=== PATIENT | male | born 1945 | race Caucasian/White ===

== ENCOUNTER → 2016-09-22 | Outpatient (CLI) | payer MEDICARE, BC ==
[~2016-09-22] MED LIST: ASPIRIN E.C. 8181 MG PO; BENICAR20 MG PO; CITRACEL PO; COLACE 100100 MG/CAP PO; EPA/GLA1 SGL PO; FLOMAX0.4 MG PO; GLUCOSAMINE & C1 CA1 PO; GLUCOSAMINE PO; HYZAAR 25 MG-101 TAB PO; LIPITOR20 MG PO; LOPRESSOR 225 MG/TAB PO; LUTEIN20 M1 PO; MULTIPLE VITAMI1 CAP PO; MULTIVITAMIN1 CTB PO; NITROSTAT0.4 MG/TAB SL; OCUVITE1 TA1 PO; PERCOCET 325 MG1 TA2 PO; PHENERGAN 25 TA25 MG PO; PHENERGAN25 MG RC; PLAVIX 75MG TAB75 MG PO; PYRIDIUM200 M1; TYLENOL 325MG325 MG PO; VICODIN 5/5001 UDTAB PO; VYTORIN 10 MG-41 TAB PO
== END ==
LOC: MHCPAIN 11:21
DX: G89.29 Other chronic pain (principal); M47.817 Spondylosis without myelopathy or radiculopathy, lumbosacral region; M54.16 Radiculopathy, lumbar region; M53.3 Sacrococcygeal disorders, not elsewhere classified; M41.9 Scoliosis, unspecified
CPT/HCPCS: G0463

== ENCOUNTER → 2016-09-25 | Outpatient (CLI) | payer MEDICARE, BC | LOC: MHCPAIN 10:13 | DX: M47.817 Spondylosis without myelopathy or radiculopathy, lumbosacral region (principal) | CPT/HCPCS: J1100; J2250; J3010; Q9967 ==

== ENCOUNTER → 2016-11-03 | Outpatient (CLI) | payer MEDICARE, BC | LOC: MHCPAIN 11:03 | DX: G89.29 Other chronic pain (principal); M47.817 Spondylosis without myelopathy or radiculopathy, lumbosacral region; M54.16 Radiculopathy, lumbar region; M53.3 Sacrococcygeal disorders, not elsewhere classified | CPT/HCPCS: G0463 ==

== ENCOUNTER → 2016-11-13 | Outpatient (CLI) | payer MEDICARE, BC | LOC: MHCPAIN 08:42 | DX: M47.817 Spondylosis without myelopathy or radiculopathy, lumbosacral region (principal) | CPT/HCPCS: J1100; Q9967 ==

== ENCOUNTER → 2017-01-12 | Outpatient (CLI) | payer MEDICARE, BC | LOC: MHCPAIN 10:58 | DX: G89.29 Other chronic pain (principal); M47.27 Other spondylosis with radiculopathy, lumbosacral region; M53.3 Sacrococcygeal disorders, not elsewhere classified; Z87.891 Personal history of nicotine dependence; Z79.82 Long term (current) use of aspirin | CPT/HCPCS: G0463 ==

== ENCOUNTER → 2017-07-07 | Outpatient (CLI) | payer MEDICARE, BC | LOC: MHCPAIN 10:58 | DX: G89.29 Other chronic pain (principal); M47.817 Spondylosis without myelopathy or radiculopathy, lumbosacral region; M54.16 Radiculopathy, lumbar region; M53.3 Sacrococcygeal disorders, not elsewhere classified; M48.061 Spinal stenosis, lumbar region without neurogenic claudication | CPT/HCPCS: G0463 ==

== ENCOUNTER → 2017-09-22 | Outpatient (CLI) | payer MEDICARE, BC ==
[~2017-09-22] MED LIST changes: +NEURONTIN300 MG/CAP PO; +PREDNISONE20 MG PO; +PRESERVISION1 SGL PO
== END ==
LOC: MHCPAIN 09:29
DX: G89.29 Other chronic pain (principal); M47.817 Spondylosis without myelopathy or radiculopathy, lumbosacral region; M54.16 Radiculopathy, lumbar region; M53.3 Sacrococcygeal disorders, not elsewhere classified; M48.061 Spinal stenosis, lumbar region without neurogenic claudication; M41.9 Scoliosis, unspecified
CPT/HCPCS: G0463

== ENCOUNTER → 2017-10-07 | Outpatient (CLI) | payer MEDICARE, BC | LOC: MHCPAIN 08:41 | DX: M47.817 Spondylosis without myelopathy or radiculopathy, lumbosacral region (principal); M48.061 Spinal stenosis, lumbar region without neurogenic claudication | CPT/HCPCS: J1040; Q9967 ==

== ENCOUNTER → 2017-10-27 | Outpatient (CLI) | payer MEDICARE, BC | LOC: MHCPAIN 15:12 | DX: G89.29 Other chronic pain (principal); M47.817 Spondylosis without myelopathy or radiculopathy, lumbosacral region; M54.16 Radiculopathy, lumbar region; M53.3 Sacrococcygeal disorders, not elsewhere classified; M41.9 Scoliosis, unspecified; M48.061 Spinal stenosis, lumbar region without neurogenic claudication | CPT/HCPCS: G0463 ==

== ENCOUNTER → 2017-11-12 | Outpatient (CLI) | payer MEDICARE, BC | LOC: MHCPAIN 08:45 | DX: M54.16 Radiculopathy, lumbar region (principal) | CPT/HCPCS: J1040; J2250; J3010; Q9967 ==

== ENCOUNTER → 2018-01-11 | Outpatient (CLI) | payer MEDICARE, BC | LOC: MHCPAIN 10:03 | DX: G89.29 Other chronic pain (principal); M47.817 Spondylosis without myelopathy or radiculopathy, lumbosacral region; M54.16 Radiculopathy, lumbar region; M53.3 Sacrococcygeal disorders, not elsewhere classified; M48.061 Spinal stenosis, lumbar region without neurogenic claudication | CPT/HCPCS: G0463 ==

== ENCOUNTER → 2018-01-14 | Outpatient (CLI) | payer MEDICARE, BC | LOC: MHCPAIN 12:54 | DX: M47.817 Spondylosis without myelopathy or radiculopathy, lumbosacral region (principal); M54.16 Radiculopathy, lumbar region | CPT/HCPCS: J1040; J2250; J3010; Q9967 ==

== ENCOUNTER → 2018-04-05 | Outpatient (CLI) | payer MEDICARE, BC | LOC: MHCPAIN 09:33 | DX: G89.29 Other chronic pain (principal); M47.817 Spondylosis without myelopathy or radiculopathy, lumbosacral region; M54.16 Radiculopathy, lumbar region; M53.3 Sacrococcygeal disorders, not elsewhere classified | CPT/HCPCS: G0463 ==

== ENCOUNTER → 2018-04-26 | Outpatient (CLI) | payer MEDICARE, BC | LOC: MHCPAIN 11:50 | DX: M47.817 Spondylosis without myelopathy or radiculopathy, lumbosacral region (principal); M54.16 Radiculopathy, lumbar region | CPT/HCPCS: J1100; J2250; J3010; Q9967 ==

== ENCOUNTER → 2018-06-15 | Outpatient (CLI) | payer MEDICARE, BC | LOC: MHCPAIN 11:14 | DX: G89.29 Other chronic pain (principal); M47.817 Spondylosis without myelopathy or radiculopathy, lumbosacral region; M54.16 Radiculopathy, lumbar region; M53.3 Sacrococcygeal disorders, not elsewhere classified | CPT/HCPCS: G0463 ==

== ENCOUNTER → 2018-06-28 | Outpatient (CLI) | payer MEDICARE, BC | LOC: MHCPAIN 14:47 | DX: M47.817 Spondylosis without myelopathy or radiculopathy, lumbosacral region (principal); M54.16 Radiculopathy, lumbar region | CPT/HCPCS: J1100; J2250; J3010; Q9967 ==

== ENCOUNTER → 2018-08-30 | Outpatient (CLI) | payer MEDICARE, BC | LOC: MHCPAIN 11:10 | DX: G89.29 Other chronic pain (principal); M47.817 Spondylosis without myelopathy or radiculopathy, lumbosacral region; M54.16 Radiculopathy, lumbar region; M53.3 Sacrococcygeal disorders, not elsewhere classified | CPT/HCPCS: G0463 ==

== ENCOUNTER → 2018-09-21 | Outpatient (RCR) | payer MEDICARE, BC | END | disposition home or self-care (01) | LOC: WSPT → WSC 06-23 14:30 → WSPT 06-29 15:00 → WSC 07-06 08:30 → WSPT 07-13 14:15 → WSC 07-15 13:00 → WSPT 07-20 13:00 → WSC 07-27 15:30 → WSPT 07-30 13:45 | DX: M47.817 Spondylosis without myelopathy or radiculopathy, lumbosacral region (principal); G89.29 Other chronic pain ==

== ENCOUNTER 2018-10-07 14:15 | Outpatient (RCR) | payer MEDICARE, BC | END 2018-12-23 | LOC: WSPT | DX: M47.817 Spondylosis without myelopathy or radiculopathy, lumbosacral region (principal); G89.29 Other chronic pain ==

== ENCOUNTER → 2018-12-28 | Outpatient (CLI) | payer MEDICARE, BC | LOC: MHCPAIN 08:18 | DX: G89.29 Other chronic pain (principal); M47.817 Spondylosis without myelopathy or radiculopathy, lumbosacral region; M54.16 Radiculopathy, lumbar region; M53.3 Sacrococcygeal disorders, not elsewhere classified | CPT/HCPCS: G0463 ==

== ENCOUNTER → 2019-01-04 | Outpatient (CLI) | payer MEDICARE, BC | LOC: COL.RAD 11:55 | DX: M47.27 Other spondylosis with radiculopathy, lumbosacral region (principal) ==

== ENCOUNTER → 2019-01-13 | Outpatient (CLI) | payer MEDICARE, BC | LOC: MHCPAIN 09:58 | DX: M47.817 Spondylosis without myelopathy or radiculopathy, lumbosacral region (principal); M54.16 Radiculopathy, lumbar region | CPT/HCPCS: J1100; Q9967 ==

== ENCOUNTER → 2019-04-25 | Outpatient (CLI) | payer MEDICARE, BC | LOC: MHCPAIN 09:13 | DX: M47.817 Spondylosis without myelopathy or radiculopathy, lumbosacral region (principal); M54.16 Radiculopathy, lumbar region | CPT/HCPCS: G0463 ==

== ENCOUNTER → 2019-10-25 | Outpatient (CLI) | payer MEDICARE, BC | LOC: MHCPAIN 14:24 | DX: M47.817 Spondylosis without myelopathy or radiculopathy, lumbosacral region (principal); M54.5 Low back pain; M53.3 Sacrococcygeal disorders, not elsewhere classified; M96.1 Postlaminectomy syndrome, not elsewhere classified; G89.29 Other chronic pain | CPT/HCPCS: G0463 ==

== ENCOUNTER → 2019-10-27 | Outpatient (CLI) | payer MEDICARE, BC | LOC: MHCPAIN 12:18 | DX: M47.817 Spondylosis without myelopathy or radiculopathy, lumbosacral region (principal); M53.3 Sacrococcygeal disorders, not elsewhere classified ==

== ENCOUNTER → 2019-11-02 | Outpatient (CLI) | payer MEDICARE, BC | LOC: MHCPAIN 09:46 | DX: M47.817 Spondylosis without myelopathy or radiculopathy, lumbosacral region (principal); M54.5 Low back pain; M96.1 Postlaminectomy syndrome, not elsewhere classified; M53.3 Sacrococcygeal disorders, not elsewhere classified | CPT/HCPCS: G0463 ==

== ENCOUNTER → 2019-11-10 | Outpatient (CLI) | payer MEDICARE, BC | LOC: MHCPAIN 10:32 | DX: M47.817 Spondylosis without myelopathy or radiculopathy, lumbosacral region (principal); M54.5 Low back pain ==

== ENCOUNTER → 2019-11-14 | Outpatient (CLI) | payer MEDICARE, BC | LOC: MHCPAIN 10:21 | DX: M47.817 Spondylosis without myelopathy or radiculopathy, lumbosacral region (principal); M54.5 Low back pain; M53.3 Sacrococcygeal disorders, not elsewhere classified; M96.1 Postlaminectomy syndrome, not elsewhere classified | CPT/HCPCS: G0463 ==

== ENCOUNTER → 2019-11-16 | Outpatient (CLI) | payer MEDICARE, BC | LOC: COL.RAD 07:32 | DX: G25.0 Essential tremor (principal); R25.9 Unspecified abnormal involuntary movements ==

== ENCOUNTER → 2019-12-01 | Outpatient (CLI) | payer MEDICARE, BC | LOC: MHCPAIN 10:08 | DX: M47.817 Spondylosis without myelopathy or radiculopathy, lumbosacral region (principal); M54.5 Low back pain; M53.3 Sacrococcygeal disorders, not elsewhere classified | CPT/HCPCS: J2250; J3010 ==

== ENCOUNTER → 2020-01-31 | Outpatient (CLI) | payer MEDICARE, BC | LOC: MHCPAIN 11:05 | DX: M47.817 Spondylosis without myelopathy or radiculopathy, lumbosacral region (principal); M96.1 Postlaminectomy syndrome, not elsewhere classified; M54.5 Low back pain; M53.3 Sacrococcygeal disorders, not elsewhere classified; G89.29 Other chronic pain | CPT/HCPCS: G0463 ==

== ENCOUNTER → 2020-05-29 | Outpatient (CLI) | payer MEDICARE, BC | LOC: MHCPAIN 10:18 | DX: M47.817 Spondylosis without myelopathy or radiculopathy, lumbosacral region (principal); M54.5 Low back pain; M53.3 Sacrococcygeal disorders, not elsewhere classified; G89.29 Other chronic pain | CPT/HCPCS: G0463 ==

== ENCOUNTER → 2020-05-31 | Outpatient (CLI) | payer MEDICARE, BC | LOC: MHCPAIN 10:15 | DX: M47.817 Spondylosis without myelopathy or radiculopathy, lumbosacral region (principal); M54.5 Low back pain ==

== ENCOUNTER → 2020-06-28 | Outpatient (CLI) | payer MEDICARE, BC | LOC: MHCPAIN 13:21 | DX: M47.817 Spondylosis without myelopathy or radiculopathy, lumbosacral region (principal); M54.5 Low back pain; M53.3 Sacrococcygeal disorders, not elsewhere classified | CPT/HCPCS: G0463; J1100; J2250; J3010 ==

== ENCOUNTER → 2020-09-04 | Outpatient (CLI) | payer MEDICARE, BC | LOC: MHCPAIN 10:25 | DX: M47.816 Spondylosis without myelopathy or radiculopathy, lumbar region (principal); M25.552 Pain in left hip; M96.1 Postlaminectomy syndrome, not elsewhere classified; G89.29 Other chronic pain | CPT/HCPCS: G0463 ==

== ENCOUNTER 2020-10-16 10:00 | Outpatient (RCR) | payer MEDICARE, BC | END 2020-12-10 | disposition home or self-care (01) | LOC: WSC | DX: M47.896 Other spondylosis, lumbar region (principal) ==

== ENCOUNTER → 2021-01-01 | Outpatient (CLI) | payer MEDICARE, BC | LOC: MHCPAIN 10:44 | DX: M47.817 Spondylosis without myelopathy or radiculopathy, lumbosacral region (principal); M54.5 Low back pain; M53.3 Sacrococcygeal disorders, not elsewhere classified; M96.1 Postlaminectomy syndrome, not elsewhere classified | CPT/HCPCS: G0463 ==

== ENCOUNTER 2021-03-21 01:35 | Emergency (ER) | payer MEDICARE, BC ==
[~2021-03-21] VITALS: Ht 175.3 cm; Wt 110.9 kg
[2021-03-21 01:48] VITALS: TEMP 98.2
[2021-03-21 03:04] LABS: COLLECTION METHOD CATHETER
[2021-03-21 03:13] LABS: PH 6 (5-8); SQUAMOUS EPITHELIAL None Seen /hpf (0-10); URINE APPEARANCE Cloudy (CLEAR/HAZY); URINE BACTERIA None Seen (NONE SEEN); URINE BILIRUBIN Negative (NEGATIVE); URINE BLOOD 3+ (NEGATIVE); URINE CALCIUM OXALATE CRYSTAL Present (NOT PRESENT); URINE COLOR Amber (YELLOW); URINE GLUCOSE Negative (NEGATIVE); URINE KETONE Trace (NEGATIVE); URINE LEUKOCYTE ESTERASE Negative (NEGATIVE); URINE NITRATE Positive (NEGATIVE); URINE PROTEIN(semi-quant) 2+ (NEGATIVE); URINE RBC >50 /hpf (0-2); URINE UROBILINOGEN >=4.0 mg/dL (NEGATIVE)
[2021-03-21 03:34] VITALS: BP 112/99; PULSE 75
== END 2021-03-21 03:15 | disposition home or self-care (01) ==
LOC: COL.ER 01:35
PROVIDERS: Emergency Medicine
DX: R33.9 Retention of urine, unspecified (principal); I10 Essential (primary) hypertension; E78.5 Hyperlipidemia, unspecified; I25.10 Atherosclerotic heart disease of native coronary artery without angina pectoris; Z79.899 Other long term (current) drug therapy; Z79.82 Long term (current) use of aspirin

== ENCOUNTER → 2021-07-11 | Outpatient (CLI) | payer MEDICARE, BC ==
[2021-07-11 15:19] LABS: CALCIUM 9.9 mg/dL (8.4-10.2); CREATININE, serum 1.12 mg/dL (0.72-1.25); POTASSIUM 4.8 mmol/L (3.5-4.5)
== END ==
LOC: ZCOL.LAB 14:53
PROVIDERS: Nurse Practitioner
DX: R60.0 Localized edema (principal)

== ENCOUNTER 2023-01-20 09:49 | Inpatient (IN) | payer MEDICARE, BC ==
[2023-01-20] VITALS (16 sets, daily range): BP systolic 111–153; BP diastolic 41–68; PULSE 90–110; TEMP 97.9–107.1; O2SAT 92–96
[~2023-01-20] VITALS: Ht 175.3 cm; Wt 106.8 kg
[~2023-01-20 09:49] MED LIST changes: -CITRACEL PO; +CITRUCEL WITH500 MG PO; -EPA/GLA1 SGL PO; -MULTIVITAMIN1 CTB PO; +OMEGA-3 1000 MG1 CAP PO; +ONE-A-DAY ESSE1 EACH PO
[2023-01-20 09:58] LABS: COLLECTION METHOD CLEAN CATCH
[2023-01-20 10:13] LABS: HEMATOCRIT 42.4 % (42.0-52.0); HEMOGLOBIN 14.3 g/dl (13.5-18.0); MEAN CELL VOLUME 90 fl (80.0-100.0); MEAN CORPUSCULAR HEMOGLOBIN 30 pg (27-31); MEAN CORPUSCULAR HGB CONC 34 g/dl (33.0-37.0); MEAN PLATELET VOLUME 9.5 fl (7.4-10.4); PLATELET COUNT 178 K/mm3 (130-400); REDCELL DISTRIBUTION WIDTH-CV 14.6 % (11.5-14.5)
[2023-01-20 10:19] LABS: URINE APPEARANCE Hazy (CLEAR/HAZY); URINE COLOR Yellow (YELLOW); URINE PROTEIN(semi-quant) 2+ (NEGATIVE)
[2023-01-20 10:20] LABS: URINE BLOOD 2+ (NEGATIVE); URINE GLUCOSE 2+ (NEGATIVE); URINE KETONE TRACE (NEGATIVE); URINE NITRATE Negative (NEGATIVE); URINE RBC 20-50 /hpf (0-2); URINE UROBILINOGEN 0.2 E.U/dL (0.2-1.0)
[2023-01-20 10:21] LABS: MUCOUS Present (NOT PRESENT); SQUAMOUS EPITHELIAL None Seen /hpf (0-10); URINE BACTERIA Moderate /hpf (NONE SEEN)
[2023-01-20 10:22] LABS: INR 1.4 (0.8-3.0); PROTHROMBIN TIME 14.8 SECONDS (9.7-12.8)
[2023-01-20 10:31] LABS: BILIRUBIN,TOTAL 1.2 mg/dL (0.2-1.2); C-REACTIVE PROTEIN 4.33 mg/dL (0.00-0.50); CREATININE, serum 1.11 mg/dL (0.72-1.25); POTASSIUM 3.9 mmol/L (3.5-4.5); TOTAL PROTEIN 7.1 gm/dL (6.2-8.1)
[2023-01-20 10:51] LABS: BAND 2 % (0-10); EOSINOPHIL 2 % (0-4); LYMPHOCYTE 3 % (20.0-51.0); NEUTROPHILS 91 % (42.0-75.2)
[2023-01-20 10:52] LABS: PLATELET ESTIMATE NORMAL (NORMAL)
[2023-01-20] MEDS ORDERED: SINEMET 25/101 UDTAB PO (11:08)
[2023-01-20] MEDS ORDERED: LIPITOR 80MG80 MG PO (11:08)
[2023-01-20] MEDS ORDERED: GLUCOPHAGE XR500 M1 PO (11:08)
[2023-01-20] MEDS ORDERED: TOPROL XL 25MG25 MG PO ×2 (11:09)
[2023-01-20] MEDS ORDERED: COZAAR 50MG50 MG/TAB PO (11:10)
[2023-01-20] MEDS ORDERED: MYSOLINE 5050 MG/TAB PO (11:10)
[2023-01-20] MEDS ORDERED: PRILOSEC 20MG20 MG PO (11:10)
[2023-01-20] MEDS ORDERED: FARXIGA10 PO (11:11)
[2023-01-20] MEDS ORDERED: GEMTESA75 MG PO (11:11)
[2023-01-20] MEDS ORDERED: REQUIP XL2 MG PO (11:12)
[2023-01-20] MEDS ORDERED: ZANAFLEX2 MG PO (11:12)
[2023-01-20] MEDS ORDERED: SINEMET CR1 UDTAB.S1 PO (11:12)
[2023-01-20] MEDS ORDERED: PHARMASSURE ZIN50 MG PO (11:30)
[2023-01-20] MEDS ORDERED: MASON NATURAL2000 IU PO (11:30)
[2023-01-20] MEDS ORDERED: PROAIR HFA0.09 MG/AC IH (11:31)
[2023-01-20] MEDS ORDERED: DULCOLAX TAB5 MG PO (11:31)
[2023-01-20] MEDS ORDERED: FLOMAX 0.40.4 MG/CAP PO (11:48)
--- NOTE | 2023-01-20 13:21 | NUR ---
PT ARRIVED TO ROOM 312. PT IS A&O X4. NO COMPLAINTS OF PAIN ON ASSESSMENT. PT STATES HE HAS BEEN FEELING URGENCY, FREQUENCY AND BURNING WITH URINATION. LUNG SOUNDS CLEAR, HEART SOUNDS NORMAL, REGULAR RATE. BOWEL SOUNDS ACTIVE. PT STATES HE HAS CONSTIPATION AT TIMES BUT DID HAVE A BOWEL MOVEMENT UPON ARRIVING TO THE ROOM. PT IS ABLE TO AMBULATE SBA WITH [place], DOES NEED TIME WHEN FIRST STANDING TO GET HIS BALANCE, SLIGHT SHUFFLE NOTED. PT SITTING IN CHAIR EATING TURKEY SANDWHICH.
[2023-01-20 22:08] LABS: BASO % 0.5 % (0.0-2.0); EOS % 0.1 % (0.0-4.0); GRAN # 6.9 K/mm3 (1.4-6.5); GRAN % 80.6 % (42.2-75.2); HEMATOCRIT 40.5 % (42.0-52.0); HEMOGLOBIN 13.8 g/dl (13.5-18.0); LYMPH # 1.3 K/mm3 (1.2-3.4); LYMPH % 14.7 % (20.0-51.0); MEAN CELL VOLUME 89 fl (80.0-100.0); MEAN CORPUSCULAR HEMOGLOBIN 30 pg (27-31); MEAN CORPUSCULAR HGB CONC 34 g/dl (33.0-37.0); MEAN PLATELET VOLUME 10.1 fl (7.4-10.4); MONO # 0.3 K/mm3 (0.1-0.6); MONO % 3.5 % (1.7-9.3); PLATELET COUNT 181 K/mm3 (130-400); RED BLOOD COUNT 4.55 M/mm3 (4.20-5.60); REDCELL DISTRIBUTION WIDTH-CV 14.9 % (11.5-14.5)
[2023-01-20 22:31] LABS: CALCIUM 9.6 mg/dL (8.4-10.2); CREATININE, serum 1.48 mg/dL (0.72-1.25); POTASSIUM 3.9 mmol/L (3.5-4.5)
--- NOTE | 2023-01-20 22:45 | NUR ---
RECIEVED PATIENT FROM FLOOR/ELEVATED TEMPS 107.2 ABD 105.1/ PATIENT CONFUSED/ IV LR INFUSING NURSES REPORT FROM LEXI JUARES
[2023-01-21] VITALS (856 sets, daily range): BP systolic 84–114; BP diastolic 54–88; PULSE 69–86; TEMP 36.4–36.6; O2SAT 26–100
--- NOTE | 2023-01-21 00:30 | NUR ---
1999-pt assessed, clear responses, alert and oriented x2. pt denied pain, chest pain and shortness of breath at this time. blood glucose recorded as 88. skin appears to be slightly warm/hot and moist. pt has no further needs, questions, or concerns at this time. call light within reach, will continue to monitor. 2100- pt temperature 102.7, DAMARI Steinberg notified, tylenol ordered. pt then became diaphoretic, skin hot and SOB , unable to form coherant words. pt feeling nauseaous and vomitted a small amount of yellow liquid with small white chunks. RT notified for SOB, sats in the 80s, albuterol treatment and placed on 2 L venturi mask. sofa cover inspector, mix house operator, and DAMARI Steinberg in to aide with patient. ice bage placed around pt's body,blankets taken off, temp recorded 107.1. per orders, 650 mg FL tylenol given, 4 mg zofran given, 600 mg of motrin given. blood glucose recorded as 179 at this time. 2199- rectal temp measured as 105.2, 325 mg of tylenol FL given. DIE STAMPING PRESS OPERATOR in to aide with pt. IV in RAC infiltrated, new IVs placed in LF and LISA with LR bolus running at 500 ml/hr in LF per orders. 2229-pt transfered to ICU at this time, report given to BLANQUITA VARELA. pt settled into ICU rm 1 bed and cooling blankets applied, rectal temp read as 101.8, DAMARI Steinberg notified. (Lakshmi) at bedside. care passed to BLANQUITA Varela.
--- NOTE | 2023-01-21 00:30 | NUR ---
PATIENT ARRIVES AT [address] AR[address] LOWER EXTREMITIES RECTAL TEMP AT THAT TIME 102.5/ AT 2330 TEMP DOWN TO 99.4 CURRENT TEMP AT 99.1, COOLING BLANKET OFF AT THIS TIME. PATIENT ASLEEP
[2023-01-21 06:34] LABS: CALCIUM 8.3 mg/dL (8.4-10.2); CREATININE, serum 2.07 mg/dL (0.72-1.25); POTASSIUM 3.3 mmol/L (3.5-4.5)
[2023-01-21 07:49] LABS: HEMATOCRIT 39.2 % (42.0-52.0); HEMOGLOBIN 13.1 g/dl (13.5-18.0); MEAN CELL VOLUME 92 fl (80.0-100.0); MEAN CORPUSCULAR HEMOGLOBIN 31 pg (27-31); MEAN CORPUSCULAR HGB CONC 33 g/dl (33.0-37.0); PLATELET COUNT 125 K/mm3 (130-400); RED BLOOD COUNT 4.28 M/mm3 (4.20-5.60); REDCELL DISTRIBUTION WIDTH-CV 15.3 % (11.5-14.5)
[2023-01-21 08:10] LABS: BAND 25 % (0-10); LYMPHOCYTE 4 % (20.0-51.0); NEUTROPHILS 68 % (42.0-75.2); PLATELET ESTIMATE DECREASED (NORMAL)
--- NOTE | 2023-01-21 10:38 | NUR ---
SW reviewed pt's clinical record and noted he was admitted to the hospital for AMS secondary to UTI. Pt was alert, pleasant and oriented to person, time and place during SW's initial intake. Pt has a bipap but no other assistive, healthcare devices. Pt ambulates independently and is independent in his ADL's/IADL's. Pt, a retired CPA, lives with his , Lakshmi of 47 years, in [place]. Pt reports he has 2 adult children, a son who resides in [place], a dtr in [place], and several grandchildren. He states his primary care provider is Dr. Wali Franklin, ph# [phone] and he fills his prescriptions @ [facility]. Pt reports he has a HCPOA which is his , but the document is at home. Pt stated he will have his bring a copy in next time she visits. No other concerns noted. SW to continue to follow.
--- NOTE | 2023-01-21 15:09 | NUR ---
PATIENT IS RESTING WITH BEDSIDE. HE IS ALERT AND ORIENTED, HAS HAD A BOWEL MOVEMENT, IS STILL CURRENTLY ON LEVOPHED FOR BLOOD PRESSURE SUPPORT. DENIES PAIN, SOB, CHEST PAIN, OR ANY OTHER COMPLICATION. NO QUESTIONS AT THIS TIME.
[2023-01-21 21:55] LABS: CALCIUM 8.7 mg/dL (8.4-10.2); CREATININE, serum 2.67 mg/dL (0.72-1.25); MAGNESIUM 1.5 mg/dL (1.6-2.6); POTASSIUM 4.2 mmol/L (3.5-4.5)
[2023-01-22] VITALS (1307 sets, daily range): BP systolic 96–132; BP diastolic 52–78; PULSE 70–80; TEMP 97.5–99.4; O2SAT 74–100
[2023-01-22 04:25] LABS: HEMOGLOBIN 11.3 g/dl (13.5-18.0); MEAN CELL VOLUME 89 fl (80.0-100.0); MEAN CORPUSCULAR HEMOGLOBIN 31 pg (27-31); MEAN CORPUSCULAR HGB CONC 34 g/dl (33.0-37.0); MEAN PLATELET VOLUME 10.3 fl (7.4-10.4); PLATELET COUNT 112 K/mm3 (130-400); RED BLOOD COUNT 3.69 M/mm3 (4.20-5.60); REDCELL DISTRIBUTION WIDTH-CV 15.6 % (11.5-14.5)
[2023-01-22 04:28] LABS: HEMATOCRIT 32.9 % (42.0-52.0)
[2023-01-22 04:46] LABS: CALCIUM 8.3 mg/dL (8.4-10.2); CREATININE, serum 2.94 mg/dL (0.72-1.25); MAGNESIUM 1.9 mg/dL (1.6-2.6); POTASSIUM 4.2 mmol/L (3.5-4.5)
[2023-01-22 04:54] LABS: BAND 17 % (0-10); LYMPHOCYTE 2 % (20.0-51.0); METAMYELOCYTE 2 % (0-0); NEUTROPHILS 77 % (42.0-75.2)
[2023-01-22 04:55] LABS: ANISOCYTOSIS 1+; PLATELET ESTIMATE DECREASED (NORMAL)
[2023-01-22 04:56] LABS: BURR CELLS 1+
[2023-01-22 14:17] LABS: CALCIUM 8.4 mg/dL (8.4-10.2); CREATININE, serum 2.98 mg/dL (0.72-1.25); POTASSIUM 3.9 mmol/L (3.5-4.5)
--- NOTE | 2023-01-22 23:50 | NUR ---
[facility] HERE/ NURSE REPORT TO [place] [employer]/PATIENT DISCHARGED WITH PICC LINE IN PLACE AND ALBRIGHT IN PLACE AND FLOWING.. VITALS RECORDED AND SENT / NURSES REPORT TO [facility] MYRIAM JUARES. AT 0007 DISCHARGE TIME IS 2352
--- NOTE | 2023-01-24 22:02 | NUR ---
Positive blood cultures faxed to [facility]
== END 2023-01-22 23:55 | disposition short-term general hospital (02) | DRG 871 ==
LOC: COL.ER 09:49 → MEDICAL 12:13 → ICU 12:13
PROVIDERS: Emergency Medicine; Nurse Practitioner; Nurse Practitioner Family; ADMIT Internal Medicine
PROC: 02HV33Z Insertion of Infusion Device into Superior Vena Cava, Percutaneous Approach (ICD-10-PCS; principal; 2023-01-20)
DX: A41.9 Sepsis, unspecified organism (principal); G93.41 Metabolic encephalopathy; I50.21 Acute systolic (congestive) heart failure; R65.21 Severe sepsis with septic shock; N17.9 Acute kidney failure, unspecified; E87.20 Acidosis, unspecified; M62.82 Rhabdomyolysis; N39.0 Urinary tract infection, site not specified; N41.9 Inflammatory disease of prostate, unspecified; B96.89 Other specified bacterial agents as the cause of diseases classified elsewhere; I11.0 Hypertensive heart disease with heart failure; E78.5 Hyperlipidemia, unspecified; G20.A1 Parkinson's disease without dyskinesia, without mention of fluctuations; J32.9 Chronic sinusitis, unspecified; M50.320 Other cervical disc degeneration, mid-cervical region, unspecified level; I25.10 Atherosclerotic heart disease of native coronary artery without angina pectoris; N40.0 Benign prostatic hyperplasia without lower urinary tract symptoms; E11.9 Type 2 diabetes mellitus without complications; Z79.84 Long term (current) use of oral hypoglycemic drugs
CPT/HCPCS: C1751; J0696; J1650; J1815; J1940; J2185; J2405; J3475; J3480; J7030; J7060; J7120; Q3014; Q9967

== ENCOUNTER → 2023-04-23 | Outpatient (CLI) | payer MEDICARE, BC ==
[~2023-04-23] MED LIST changes: +COZAAR 50MG50 MG/TAB PO; +DULCOLAX TAB5 MG PO; +FARXIGA10 PO; +FLOMAX 0.40.4 MG/CAP PO; +GEMTESA75 MG PO; +GLUCOPHAGE XR500 M1 PO; +LIPITOR 80MG80 MG PO; +MASON NATURAL2000 IU PO; +MYSOLINE 5050 MG/TAB PO; +PHARMASSURE ZIN50 MG PO; +PRILOSEC 20MG20 MG PO; +PROAIR HFA0.09 MG/AC IH; +REQUIP XL2 MG PO; +SINEMET 25/101 UDTAB PO; +SINEMET CR1 UDTAB.S1 PO; +TOPROL XL 25MG25 MG PO; +ZANAFLEX2 MG PO
== END ==
LOC: COL.RAD 09:18
DX: M48.02 Spinal stenosis, cervical region (principal); M50.31 Other cervical disc degeneration, high cervical region; M50.321 Other cervical disc degeneration at C4-C5 level; M50.322 Other cervical disc degeneration at C5-C6 level; M50.323 Other cervical disc degeneration at C6-C7 level; M50.33 Other cervical disc degeneration, cervicothoracic region; M79.609 Pain in unspecified limb; R20.2 Paresthesia of skin

== ENCOUNTER → 2023-05-01 | Outpatient (CLI) | payer MEDICARE ==
[~2023-05-01] MED LIST changes: +Albuterol 0.083% Neb Soln 2.5 MG/3 ML UD IH ONE; +Methacholine Vial A (Clear Label Base-Cntrl) IH ONE; +Methacholine Vial B (Red Label) 0.0625 MG/ML 3 ML VIAL.NEB IH ONE; +Methacholine Vial C (Orange Label) 0.25 MG/ML 3 ML VIAL.NEB IH ONE
== END ==
LOC: COL.CARD 12:57
DX: R05.3 Chronic cough (principal); Z87.891 Personal history of nicotine dependence
CPT/HCPCS: J7674

== ENCOUNTER → 2023-06-16 | Outpatient (REF) | payer MEDICARE ==
[~2023-06-16] MED LIST changes: -Albuterol 0.083% Neb Soln 2.5 MG/3 ML UD IH ONE; -Methacholine Vial A (Clear Label Base-Cntrl) IH ONE; -Methacholine Vial B (Red Label) 0.0625 MG/ML 3 ML VIAL.NEB IH ONE; -Methacholine Vial C (Orange Label) 0.25 MG/ML 3 ML VIAL.NEB IH ONE
== END ==
LOC: ZCOL.LAB 17:39
DX: Z01.89 Encounter for other specified special examinations (principal)